=== PATIENT | male | born 1955 | race Caucasian/White ===

== ENCOUNTER 2021-04-16 06:52 | Inpatient (IN) | payer MEDICARE, SELFPAY ==
[2021-04-16] VITALS (57 sets, daily range): BP systolic 101–174; BP diastolic 59–110; PULSE 56–105; RESP 6–22; TEMP 37.1; O2SAT 92–98; BMI 28.7
--- NOTE | 2021-04-16 07:03 | XR_ITS ---
WS: [id number] PORTABLE CHEST HISTORY: chest pain COMPARISON: None available. Lungs are clear and well expanded. No pleural effusion or pneumothorax. Cardiac size: Normal. Mediastinum/Aorta: Normal mediastinum. No osseous abnormality seen. XR/XR chest 1V portable [id number] IMPRESSION: Unremarkable portable chest.
--- NOTE | 2021-04-16 07:03 | ECG_ITS ---
[facility] Test Date: 2021-04-16 Pat Name: Edward Burrell Department: Room: Gender: Male Block Handler: : 1955 Requested By: Grace Chapman Order Number: [id number] Jesse MD: Long Li M.D. Measurements Intervals [place] Rate: 84 P: 28 TX: 139 QRS: -31 QRSD: 104 T: -48 QT: 385 QTc: 457 Interpretive Statements SINUS RHYTHM WITH SINUS ARRHYTHMIA POSSIBLE LEFT ATRIAL ENLARGEMENT [-0.1mV P-WAVE IN V1/V2] POSSIBLE ANTERIOR MYOCARDIAL INFARCTION , OF INDETERMINATE AGE [30 ms Q WAVE IN V3/V4, OR R < 0.2 mV IN V4] Possible recent inferior wall GA ACUTE GA Compared to ECG 04/16/2021 07:11:49 Myocardial infarct finding now present Electronically Signed On 04-16-2021 13:42:42 SEWER HAND by Long Li M.D. [id number]
[2021-04-16 07:26] LABS: Basophils % 0.2 %; Hematocrit 44.4 % (42.0-52.0); Hemoglobin 14.9 g/dL (11.7-16.6); Lymphocytes # 1.1 10^3/uL (0.8-4.8); Lymphocytes % 6.4 %; Mean Corpuscular HGB Conc 33.6 g/dL (30.0-36.0); Mean Corpuscular Hemoglobin 28.1 pg (28.0-34.0); Mean Corpuscular Volume 83.6 fl (80-94); Mean Platelet Volume 10.4 fL (7.4-10.4); Monocytes # 0.6 10^3/uL (0.2-0.9); Monocytes % 3.5 %; Neutrophils # 14.74 10^3/uL (1.8-7.7); Neutrophils % 89.5 %; Nucleated Red Blood Cells % 0 %; Platelet Count 274 10^3/cmm (130-400); Red Blood Count 5.31 10^6/uL (4.1-5.3); Red Cell Distribution Width 12.4 % (12.1-15.1); White Blood Count 16.5 10^3/uL (4.0-10.0)
[2021-04-16] MEDS: heparin 5,000 unit/mL INJ 1 mL 4000 UNIT IVP (07:29)
[2021-04-16] MEDS: ticagrelor 90 mg Tablet 180 MG PO (07:29)
--- NOTE | 2021-04-16 07:29 | USCV_ITS ---
Edward Burrell Age: 65 Gender: M : 1955 Exam Date: 04/16/2021 07:54 Ordering Phys: Grace Chapman MD Technologist: Calderon Morales Exam Location: [facility] Indication: eval for wall abnormality BP: 174 / 110 HR: 85 Rhythm: Sinus Technical Quality: Adequate MEASUREMENTS (Male / Female) Normal Values 2D ECHO LV Diastolic Diameter PLAX 2.9 cm 4.2 - 5.9 / 3.9 - 5.3 cm LV Systolic Diameter PLAX 1.9 cm IVS Diastolic Thickness 1.1 cm 0.6 - 1.0 / 0.6 - 0.9 cm IVS Systolic Thickness 1.5 cm LVPW Diastolic Thickness 1.1 cm 0.6 - 1.0 / 0.6 - 0.9 cm LVPW Systolic Thickness 1.3 cm LVOT Diameter 2.0 cm LV Ejection Fraction 2D Teich 66.8 % LV Ejection Fraction MOD 2C 62.4 % LV Ejection Fraction 2C AL 64.9 % LA Diameter 3.0 cm LA Width 3.1 cm LA Height 4.7 cm RA Width 4.1 cm RA Height 3.9 cm Aorta at Sinotubular Diameter 2.7 cm M-MODE Aortic Annulus Diameter 2.8 cm LA Ao Ratio MM 1.1 MV E Point Septal Separation 0.8 cm DOPPLER AV Peak Velocity 105.0 cm/s LVOT Peak Velocity 83.0 cm/s AV Area Cont Eq vti 2.7 cm squared AV Area Cont Eq pk 2.5 cm squared MV Area PHT 4.5 cm squared Mitral E to A Ratio 0.7 MV E' Velocity 30.5 cm/s Mitral E to MV E' Ratio 9.7 Mitral E to LV E' Lateral Ratio 9.8 Mitral E to LV E' Septal Ratio 9.7 TR Peak Velocity 185.3 cm/s TR Peak Gradient 13.7 mmHg TR Mean Velocity 154.5 cm/s TR Mean Gradient 9.6 mmHg TR Velocity Time Integral 57.1 cm Right Atrial Pressure 3.0 mmHg Pulmonary Artery Systolic Pressu 16.7 mmHg RV Acceleration Time 0.1 s RV Ejection Time 0.3 s RV AcT/ET 0.3 FINDINGS Left Ventricle Left ventricle is normal in size. There is mild to moderate hypokinesis of the inferior base and mid inferior wall. No other wall motion disturbances noted. Ejection fraction is approximately 45%.Grade I/IV diastolic dysfunction (abnormal relaxation filling pattern), normal to mildly elevated filling pressures. Right Ventricle Normal right ventricular size and systolic function. Right Atrium Normal right atrial size. Left Atrium Normal left atrial size. Mitral Valve Structurally normal mitral valve. No mitral valve regurgitation. Aortic Valve Structurally normal trileaflet aortic valve. No aortic valve stenosis. Mild aortic valve regurgitation. Tricuspid Valve Structurally normal tricuspid valve. No tricuspid valve regurgitation. Normal pulmonary artery pressure approximately 16 mmHg. Pulmonic Valve Pulmonic valve not well visualized. Pericardium No pericardial effusion. Aorta Normal aorta. Aortic dimension 2.24 cm. CONCLUSIONS Normal left ventricular size. Mild inferior wall hypokinesis suggesting coronary artery disease. Type I diastolic dysfunction. No prior echo for comparison. No valvular abnormalities. Ejection fraction 45%. Dr. Fermin Vila MD (Electronically Signed) Final Date: 16 April 2021 16:18 Amended: 16 April 2021 16:20 C
[2021-04-16] MEDS: aspirin 325 mg Tablet PO (07:31)
--- NOTE | 2021-04-16 07:31 | W.ED.CHESTPA ---
HPI - Chest Pain General: Chief Complaint: Chest Pain Stated Complaint: Chest pain Time Seen by Provider: 04/16/21 06:54 Course Vital Signs: Vital signs: Vital Signs Temperature 98.7 F 04/16/21 07:19 Pulse Rate 88 04/16/21 07:19 Respiratory Rate 20 H 04/16/21 07:19 Blood Pressure 174/110 04/16/21 07:19 Pulse Oximetry 98 04/16/21 07:19 MDM - Chest Pain Lab Data : 04/16/21 07:19 04/16/21 07:19 Laboratory Results WBC 16.5 10^3/uL (4.0-10.0) H 04/16/21 07:19 RBC 5.31 10^6/uL (4.1-5.3) H 04/16/21 07:19 Hgb 14.9 g/dL (11.7-16.6) 04/16/21 07:19 Hct 44.4 % (42.0-52.0) 04/16/21 07:19 MCV 83.6 fl (80-94) 04/16/21 07:19 MCH 28.1 pg (28.0-34.0) 04/16/21 07:19 MCHC 33.6 g/dL (30.0-36.0) 04/16/21 07:19 RDW 12.4 % (12.1-15.1) 04/16/21 07:19 Plt Count 274 10^3/cmm (130-400) 04/16/21 07:19 MPV 10.4 fL (7.4-10.4) 04/16/21 07:19 Neut % (Auto) 89.5 % 04/16/21 07:19 Lymph % (Auto) 6.4 % 04/16/21 07:19 [place] % (Auto) 3.5 % 04/16/21 07:19 Eos % (Auto) 0.0 % 04/16/21 07:19 Baso % (Auto) 0.2 % 04/16/21 07:19 Neut # (Auto) 14.74 10^3/uL (1.8-7.7) H 04/16/21 07:19 Lymph # (Auto) 1.1 10^3/uL (0.8-4.8) 04/16/21 07:19 [place] # (Auto) 0.6 10^3/uL (0.2-0.9) 04/16/21 07:19 Eos # (Auto) 0.0 10^3/uL (0.0-0.8) 04/16/21 07:19 Baso # (Auto) 0.0 10^3/uL (0.0-0.1) 04/16/21 07:19 Nucleated RBC % (auto) 0 % 04/16/21 07:19 Nucleated RBCs # 0.0 /100WBC 04/16/21 07:19 Discharge Plan Discharge Condition: Stable Referrals: Michael Morales [Family Provider] - Coding Level of Care Code 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
--- NOTE | 2021-04-16 07:34 | ED_ITS ---
HPI - General Adult General: Chief complaint: Chest Pain Stated complaint: Chest pain Time Seen by Provider: 04/16/21 06:54 History of Present Illness: CC: Chest Pain HPI: This is a [65] yo patient hx of HTN presenting to the ED complaining of sudden onset of squeezing chest pain, diaphoresis, and throat pain since 9pm yesterday. No associated with shortness of breath, chest pain or dyspnea on exertion. Pain is not tearing in nature and does not radiate to the back. Pain not associated with vomiting or PO intake. Denies any recent sympathomimetic drug use. Patient denies any cough. Denies palpitations, dysphagia, diaphoresis, radiation of pain to bilateral arms, jaw. Denies F/N/V/D. Patient denies any recent immobility, surgery, unilateral leg swelling, or prior PE. Patient denies any orthopnea. Onset: 9pm yesterday ago Duration: ongoing for the last 15 hrs Location: home Severity: moderate/severe Associated symptoms: Reports chest pain; Deny dyspnea, nausea, rash, palpitations or vomiting Review of Systems Const: Denies: fever(s) or chills Eyes: Denies: change in vision ENMT: Denies: mouth pain Card: Reports: chest pain; Denies: palpitations Resp: Denies: dyspnea or non-productive cough GI: Denies: abdominal pain, nausea, vomiting or diarrhea : Denies: dysuria Musc: Denies: extremity pain Skin/Breast: Denies: rash or new lesions Neuro: Denies: weakness in extremities Psych: Reports: other (Normal mood) Josue/Lymph: Denies: easy bruising [facility] ED PFSH: Medical History (Updated 04/16/21 @ 08:57 by Fermin Vila MD) Hypertension Family History (Updated 04/16/21 @ 07:38 by Grace Chapman MD) Denies family history of CAD (coronary artery disease) Social History (Updated 04/16/21 @ 07:38 by Grace Chapman MD) Smoking and tobacco status: never smoked Alcohol intake: never Substance/Drug Use: never Physical Exam Const: COMMON NORMALS: alert HENMT: COMMON NORMALS: atraumatic HEAD & SCALP: atraumatic MOUTH: moist mucous membranes not abnormal Eye: COMMON NORMALS: EOMs intact bilaterally and conjunctivae normal CONJUNCTIVA: Yes conjunctivae normal Neck/C-Spine: COMMON NORMALS: full ROM and supple Resp: COMMON NORMALS: normal respiratory effort and clear to auscultation bilaterally AUSCULTATION: clear to auscultation bilaterally Cardio: COMMON NORMALS: regular rate RATE: regular rate OTHER: 2+ radial pulses b/l GI: COMMON NORMALS: Soft to palpation and non-tender PALPATION: Yes Soft to palpation Extremity: COMMON NORMALS: full ROM Neuro: SENSORIUM/ORIENTATION: Yes alert MOTOR EXAM: No Abnormal motor strength present and Other motor observations present (no focal motor deficits) Psych: COMMON NORMALS: speech normal SPEECH: Yes normal speech MOOD & AFFECT: Yes euthymic mood Course Vital Signs: Vital signs: Vital Signs Temperature 98.7 F 04/16/21 09:38 Pulse Rate 71 04/16/21 09:38 Respiratory Rate 22 H 04/16/21 09:38 Blood Pressure 138/85 04/16/21 09:38 Pulse Oximetry 94 04/16/21 09:38 MDM - General Adult Medical Decision Making [65]yo patient w/ hx of uncontrolled HTN presenting to the ED with evaluation of new onset squeezing chest pain since 9 pm yesterday (x15 hrs). HDS, pulse 2+ radially bilaterally, no signs of fluid overload, AAOx3, neuro exam intact. Given History and Exam today, will evaluate for ACS. Doubt Pneumothorax, Pneumonia, Pulmonary Embolus, Tamponade, Aortic Dissection or other emergent problems as a cause for this presentation. CXR: Without PTX, PNA, or widened mediastinum Last Stress Test: never Last Heart Catheterization: never Workup: ECG x 2, CXR, CBC, BMP, Troponin x 2 Interventions: ASA, nitro, heparin, brillanta EKG showing regular sinus rhythm at HT of 92. Normal axis. CLEO in II/III/aVF with Q waves in III and aVF and T wave inversions in II/III/aVF. Reciprocal STD in I and aVL with CLEO in V5-V6 concerning for lateral extension. Tall R waves in V2-V3 in the setting of STD in V2-V3 and upright T wave in V2-V3 concerning for posterior infarction. Normal UT, QRS, QT intervals. Case was emergently discussed with Dr. Vila at 7:20am on arrival for concern of possible inferolateroposterior STEMI(-)RADHA given EKG findings. Bedside US showed inferioseptal wall motion abnormality. Dr. Vila recommended medical optimizations and frequent reassessment. I have discussed with Dr. Vila for a troponin of 1999. Dr. Vila evaluated patient a bedside and recommended prosthetic lab technician Disposition: prosthetic lab technician Lab Data : 04/16/21 07:19 04/16/21 07:19 Radiology Impressions Chest X-Ray 04/16/21 07:03 IMPRESSION: Unremarkable portable chest. Laboratory Results WBC 16.5 10^3/uL (4.0-10.0) H 04/16/21 07:19 RBC 5.31 10^6/uL (4.1-5.3) H 04/16/21 07:19 Hgb 14.9 g/dL (11.7-16.6) 04/16/21 07:19 Hct 44.4 % (42.0-52.0) 04/16/21 07:19 MCV 83.6 fl (80-94) 04/16/21 07:19 MCH 28.1 pg (28.0-34.0) 04/16/21 07:19 MCHC 33.6 g/dL (30.0-36.0) 04/16/21 07:19 RDW 12.4 % (12.1-15.1) 04/16/21 07:19 Plt Count 274 10^3/cmm (130-400) 04/16/21 07:19 MPV 10.4 fL (7.4-10.4) 04/16/21 07:19 Neut % (Auto) 89.5 % 04/16/21 07:19 Lymph % (Auto) 6.4 % 04/16/21 07:19 [place] % (Auto) 3.5 % 04/16/21 07:19 Eos % (Auto) 0.0 % 04/16/21 07:19 Baso % (Auto) 0.2 % 04/16/21 07:19 Neut # (Auto) 14.74 10^3/uL (1.8-7.7) H 04/16/21 07:19 Lymph # (Auto) 1.1 10^3/uL (0.8-4.8) 04/16/21 07:19 [place] # (Auto) 0.6 10^3/uL (0.2-0.9) 04/16/21 07:19 Eos # (Auto) 0.0 10^3/uL (0.0-0.8) 04/16/21 07:19 Baso # (Auto) 0.0 10^3/uL (0.0-0.1) 04/16/21 07:19 Nucleated RBC % (auto) 0 % 04/16/21 07:19 Nucleated RBCs # 0.0 /100WBC 04/16/21 07:19 PT 14.90 SECONDS (12.1-14.9) 04/16/21 08:00 INR 1.14 (0.8-1.2) 04/16/21 08:00 APTT 154.0 SECONDS (23.9-36.7) H* 04/16/21 08:00 Sodium 138 mmol/L (136-145) 04/16/21 07:19 Potassium 3.9 mmol/L (3.5-5.1) 04/16/21 07:19 Chloride 102 mmol/L (98-107) 04/16/21 07:19 Carbon Dioxide 22 mmol/L (22-29) 04/16/21 07:19 Anion Gap 17.9 (5-19) 04/16/21 07:19 BUN 17 mg/dL (8-23) 04/16/21 07:19 Creatinine 1.2 mg/dL (0.7-1.2) 04/16/21 07:19 GFR Calculation 60.4 mL/min (90-130) L 04/16/21 07:19 Glucose 160 mg/dL (65-115) H 04/16/21 07:19 Calculated Osmolality 291 mOsm/kg (285-295) 04/16/21 07:19 Calcium 10.4 mg/dL (8.5-10.5) 04/16/21 07:19 Troponin T Baseline 2146 ng/L (0-15) H* 04/16/21 07:19 Troponin T 120 Minute 2084 ng/L (0-15) H 04/16/21 09:24 Delta Troponin T -62 ABS# (0-10) L 04/16/21 09:24 Imaging Data Other Imaging: Radiologist's impression: [address] [place] [address] XRay Report Signed Patient: Edward Burrell Unit #: [id number] : 1955 Age/Sex: 65 / M ADM Date: 04/16/21 Loc: ER Room/Bed: Attending Dr: Ordering Provider/Ordering MD: Grace Chapman MD Date of Service: 04/16/21 Procedure(s): XR chest 1V portable [id number] Accession Number(s): [id number] Report Number: [id number] WS: [id number] PORTABLE CHEST HISTORY: chest pain COMPARISON: None available. Lungs are clear and well expanded. No pleural effusion or pneumothorax. Cardiac size: Normal. Mediastinum/Aorta: Normal mediastinum. No osseous abnormality seen. XR/XR chest 1V portable [id number] IMPRESSION: ? Unremarkable portable chest. ? ? ? Dictated By: Fatimah Mena DO Signed By: Fatimah Mena DO Signed Date/Time: 04/16/21 0803 DD/ 0755 Discharge Plan Discharge Patient Disposition: Admitted As Inpatient Admit Provider: Fermin Vila Clinical Impression: Chest pain, Acute non-ST elevation myocardial infarction (NSTEMI) Condition: Stable Coding Level of Care Code ED Retail Manager for [employer] Fwd Exam Comprehensive
[2021-04-16 07:50] LABS: Anion Gap 17.9 (5-19); Blood Urea Nitrogen 17 mg/dL (8-23); Calcium 10.4 mg/dL (8.5-10.5); Carbon Dioxide 22 mmol/L (22-29); Chloride 102 mmol/L (98-107); Creatinine Clr Calc Pharmacy 67.6663; Glomerular Filtration Rate 60.4 mL/min (90-130); Glucose 160 mg/dL (65-115); Osmolality Calculated 291 mOsm/kg (285-295); Potassium 3.9 mmol/L (3.5-5.1); Sodium 138 mmol/L (136-145)
[2021-04-16 08:01] LABS: Troponin(5th) Baseline 2146 ng/L (0-15)
[2021-04-16 08:22] LABS: INR 1.14 (0.8-1.2)
--- NOTE | 2021-04-16 08:30 | PC.NURSE ---
Echo in room and PT/PTT lab not completed
[2021-04-16] MEDS: nitroglycerin 0.4 mg sublingual Tablet SUBLINGUAL (08:41)
--- NOTE | 2021-04-16 08:42 | PC.NURSE ---
Dr Vila in room with pt.
--- NOTE | 2021-04-16 08:50 | P.HP_ITS ---
Providers/Chief Complaint Admitting Physician: Julito Chief Complaint: Chest pain History of Present Illness Edward Burrell is a 65 year old male who has no prior history of heart disease. Last night around 9 PM he noted the onset of chest pain. He described it as just pain in the middle of his chest. There was no radiation initially although later it radiated to his back. He took Rolaids without any help. The pain waxed and waned and occurred off and on for the remainder of the evening. He was unable to sleep. This morning he felt a little better will but was still having some discomfort. He did have some diaphoresis but no nausea and vomiting. In the emergency room his EKG revealed sinus rhythm with some subtle ST segment elevation though he has a leftward axis. There is also some ST segment depression in V2 and V3 as well as V6. He was started on the appropriate medications to include heparin, aspirin, Brilinta, nitroglycerin with a nitroglycerin drip. He was initially hypertensive. After his troponin came back above 2000 I was called again and decided to come to the emergency room to see the patient. Upon my arrival he is still having some mild discomfort. His other vital signs are stable. His second EKG at 08 53 reveals sinus rhythm with slightly more ST segment depression in leads V2 and V3 with the previously mentioned ST segment changes in 2, 3, aVF and V6. Review of Systems Narrative: Review of systems is unremarkable. Medications/Allergies Allergies Allergy/AdvReac Type Severity Reaction Status Date / Time No Known Allergies Allergy Verified 04/16/21 07:12 PFSH Acute PFSH: Medical History (Updated 04/16/21 @ 08:57 by Fermin Vila MD) Hypertension Family History (Updated 04/16/21 @ 07:38 by Grace Chapman MD) Denies family history of CAD (coronary artery disease) Social History (Updated 04/16/21 @ 07:38 by Grace Chapman MD) Smoking and tobacco status: never smoked Alcohol intake: never Substance/Drug Use: never Vitals/I&O/Wt Last Vital Signs Temp 98.7 F 04/16/21 07:19 Pulse 84 04/16/21 08:45 Resp 18 04/16/21 08:45 BP 150/102 04/16/21 08:45 Pulse Ox 97 04/16/21 08:45 Weight last 48 hrs Weight 200 lb Physical Exam Narrative: GENERAL: In general he looks a little bit uncomfortable. He is not in any significant distress. HEENT: Exam within normal limits. NECK: Supple without jugular vein distention. The carotid upstroke is normal without bruits. BACK: Exam normal. LUNGS: Clear. HEART: Regular rate and rhythm. ABDOMEN: Benign without organomegaly or tenderness. EXTREMITIES: No edema. NEUROLOGIC: Exam normal. SKIN: Unremarkable. Data : 04/16/21 07:19 04/16/21 07:19 Other Labs: Troponin is 2146. EKG is are as mentioned above. Glomerular filtration rate 60. A&P Assessment and plan (1) Chest pain: Status: Acute (2) Acute non-ST elevation myocardial infarction (NSTEMI): Status: Acute Attestations Medical Necessity Statement*: Patient is having a non-ST segment elevation AR with continued chest discomfort despite aggressive medical therapy. He needs relatively urgent coronary angiography. Coding Level of Care Code New Pt Acute Ict Account Manager for g Fwd Patient Type New History Detailed Exam Detailed Medical Decision Making Moderate Complexity Diagnoses Chest pain R07.9 Acute non-ST elevation myocardial infarction (NSTEMI) I21.4 Time Spent (min) 45
[2021-04-16] MEDS: nitroglycerin drip 50 MG/250 ML PREMIX IV (08:57)
--- NOTE | 2021-04-16 09:03 | ECG_ITS ---
[facility] Test Date: 2021-04-16 Pat Name: Edward Burrell Department: Room: Gender: Male Labels Molder: : 1955 Requested By: Grace Chapman Order Number: [id number] Jesse MD: oLng Li M.D. Measurements Intervals [place] Rate: 92 P: 47 MS: 148 QRS: -21 QRSD: 110 T: -44 QT: 367 QTc: 456 Interpretive Statements SINUS RHYTHM POSSIBLE LEFT ATRIAL ENLARGEMENT [-0.1mV P-WAVE IN V1/V2] Recent inferior wall IL. Nonspecific T wave changes in the anterior leads No previous ECG available for comparison Electronically Signed On 04-16-2021 13:44:08 MODEL MAKER FIBERGLASS by Long Li M.D. [id number]
--- NOTE | 2021-04-16 09:09 | XACV_ITS ---
Exam Room: [facility] Ht: 178 cm Wt: 91 kg BSA: 2.14 m2 Gender: Male : 1955 Any Known Allergies: No known allergies Exam Priority: Routine Procedure(s): Procedure Description: Diagnostic procedure Procedure Description: PCI procedure Procedure Description: Drug Eluting Coronary Stent Procedure Description: PTCA Procedure Description: Coronary Angiography Diagnostic Cath Status: Urgent Diagnostic Findings * This patient has no known history of heart disease and began to have chest pain about 10 hours prior to admission. He had subtle ST segment elevation in leads III, aVF and V6. There was also some ST segment depression in leads V2 and V3. He was initially treated with the appropriate medications in the ER but continued to have pain. His first troponin was over 2000. Second EKG was slightly more abnormal but not significantly more so than the first one. Because of the changes in the EKG, the continued pain and the elevation in the troponin I decided to take him to the Solar Installation Crew Supervisor. * Coronary angiography reveals right coronary artery dominance. The left main coronary artery is normal and bifurcates into the LAD and circumflex. The circumflex contains 2 marginal branches and exhibits diffuse luminal irregularities in the midportion. The LAD bifurcates into the small septal branch and a large diagonal branch. The distal LAD actually comes off of the septal branch after making 2 right angles. There is a 70% long stenosis in the LAD after coming off of the septal branch. The right coronary artery contains diffuse luminal irregularities and then is occluded distally. PCI Status: Urgent PCI LVEF Assessed: No PCI Indication: STEMI - Stable (<= 12 hrs Sx) Interventional Findings * The right coronary artery stenting without incident. The LAD lesion is significant with respect to its location. I tried to place a wire but there are 2 very acute 90 degree turns off the LAD, down to the septal and then to the more distal LAD. I could not get the wire down the LAD to the apex and so I decided not to intervene on this vessel and chose to simply treat the culprit lesion. Decision for PCI with Surgical Consult: No PCI for Multi-vessel Disease: No Conclusions 1. Angioplasty and stent of an occluded right coronary artery. Recommendations * Medical treatment. Stress testing post discharge to assess the LAD distribution. Interventional RX Recommendation: PCI w/o planned CABG Diagnostic RX Recommendation: PCI w/o planned CABG Anticoagulation: Heparin Pressures Phase:Rest AO : 154 / 100 ( 122 ) @ 7:59:00 AM 106 / 77 ( 81 ) @ 8:09:00 AM 179 / 109 ( 126 ) @ 8:23:00 AM Clinical Evaluation EBL: 5mL-10mL Procedural Details Procedure Consent Obtained. Pre-Procedure Time Out. Identified patient by full name and date of as verbalized by the patient/guarantor. Does the consent match the physician's order: Yes. Accurate & Complete Informed Consent: Yes. Inpatient/Outpatient History & Physical on Chart: Yes. If H&P is completed, is and addenduem needed: No; If yes, is the addendum complete: N/A. Visualize and Verify Site with Patient/Guarantor: N/A. Relevant Radiology Images available: N/A. Pre-op teaching completed and patient verbalized understanding. The risks, benefits, and alternatives of sedation and/or procedure were discussed by physician. The patient agrees to continue. Procedure started. [facility] Clinical Fraility Score: 3: Managing Well. Solar Installation Crew Supervisor Indications: ACS <= 24 hours. Chest Pain Symptom Assessment: Typical Angina Symptoms. Cardiovascular Instability: No, if yes, Persistant Ischemic Symptoms. Correct patient, site and procedure confirmed by cath team. PERRLA. Strong, equal hand cut to length operator bilaterally. Lungs clear x 5 lobes. IV Site on Arrival: 18 gauge in the left wrist. IV Site on Arrival: 20 gauge in the right anticubital. IV Fluids: 0.9% NaCl at KVO. 0 mL infused prior to slab stripper. Pre Procedural Pulses: bilateral dorsalis pedis was 3+. Pre Procedural Pulses: bilateral posterior tibial was 3+. Pre Procedural Pulses: bilateral radial was 3+. Oxygen started at 2liters/min via nasal canula. Physician arrived. Equipment: 6F - Radial. Cardiac Cath Pack. ACIST Manifold Kit Model BT 2000. Heparinized Saline (2 units/mL), 1000 mL bag. Physician scrubbed in. Immediate Pre-Procedure Time Out. Correct Patient: Yes; Correct Procedure: Yes; Correct Site: Yes; Correct Patient Position: Yes; Correct Supplies: Yes; Dried Flammable Prep: Yes; Blood Products Available: N/A;. Lidocaine 1% infiltrated to the right radial. Arterial access obtained. A 5 hungarian TIG catheter in over wire. Multiple views taken of left coronary artery. Catheter redirected to the RCA. Multiple views taken of right coronary artery. Catheter removed over the standard wire. Inventory is TR 180cm Runthrough NS extra floppy 0.014 wire. Inventory is CRD 6FR JR 4 GUIDE 100cm. 6 hungarian JR 4 guide catheter was inserted over the wire. Runthrough guidewire was advanced through the guide catheter to lesion in the distal RCA. Patient's family updated. Inflation number : 1 A AB TREK 3.50X15 RX BALLOON was prepped and advanced across the Dist RCA , then inflated to 12 CHELI for 0:32 seconds. Inflation number: 2 The AB TREK 3.50X15 RX BALLOON was reinflated across the Dist RCA, to 12 CHELI for 0:23 seconds. Balloon out. Critical trop called by Trever from lab 2083. Notified Dr Vila. Inflation Number : 3 A MDT R SASCHA 4.0X22 TERRANCE -Lot Number# [id number] exp date 05/04/2022 was prepped and advanced across the Dist RCA. The stent was deployed at 12 CHELI for 0:35 seconds. Stent balloon and wire out. Guide catheter out. Inventory is CRD 6 FR XB 3.5 GUIDE. 6 hungarian XB 3.5 guide catheter was inserted over the wire. Runthrough guidewire was advanced through the guide catheter to lesion in the mid LAD. Wire out to reshape. Runthrough guidewire was advanced through the guide catheter to lesion in the mid LAD. Wire out. Guide catheter out. A 5 hungarian Angled Pig catheter in over wire. Patient's family updated. Catheter out. Physician scrubbed out. A TR Band was successful obtaining hemostatsis at the Right Radial artery insertion site. TR band placed. Hemostasis obtained. Post Procedure: Pulses reassessed and unchanged. PERRLA. Strong, equal hand cut to length operator bilaterally. No VTE prophylaxis required. Medication's Wasted: Lidocaine 1% = 18 mL. Medication's Wasted: Heparin = 1000 units. Contrast type used: Omnipaque 300 mg/mL, 150 mL bottle. Complications: none. Post-op diagnosis: nstemi. PCI Indication: NSTE. Estimated blood loss: 5mL-10mL. Responsiveness - Normal response to verbal stimuli; alert and oriented, PERRLA. Airway - Unaffected, no intervention required; spontaneous ventilation. Circulation: W/N/L, pulses unchanged. Nausea/Vomiting: No. Procedure completed. Patient transferred by wheelchair to 1st floor. Vital chart was stopped. Access Site Site: Right Radial artery Sheath Size: 6 Fr Hemostasis Method: TR Band Hemostasis Success: Successful Procedure Medications Start: 9:52 AM Stop: 9:52 AM Medication: Versed Amount: 1 mg Route: I.V. Start: 9:52 AM Stop: 9:52 AM Medication: Fentanyl Amount: 50 mcg Route: I.V. Start: 9:57 AM Stop: 9:57 AM Medication: Nitrogylcerin Amount: 200 mcg Route: I.A. Start: 9:59 AM Stop: 9:59 AM Medication: Heparin Amount: 5000 units Route: I.V. I, the attending physician, have reviewed and verified all procedure medications. Yes, all medications given per verbal order History/Risk Factors Hypertension: Yes Dyslipidemia: No Peripheral Arterial Disease (PAD): No Myocardial Infarction (MD): No Obesity: No Renal Disease: No Prior Interventions PCI: No CABG: No Valve Surgery: No Report Signatures Finalized by Dr. Fermin Vila MD on 04/16/2021 02:14 PM
[2021-04-16] MEDS: diphenhydrAMINE 50 mg Capsule PO (09:20)
[2021-04-16] MEDS: sodium chloride 0.9% 1,000 ML 50 ML IV (09:21)
[2021-04-16 10:18] LABS: Troponin 5 2HR 2084 ng/L (0-15); Troponin 5 2HR Delta -62 ABS# (0-10)
--- NOTE | 2021-04-16 12:21 | PC.NURSE ---
received from cardiac slabber at 11:00.report received.pt is alert and awake.sr on monitor.vss.right wrist with tr band on and inflated.right hand is warm to touch and with brisk capillary refill.no hematoma noted.palpable radial pulse noted distal to tr band.pt instructed in activity restrictions s/p tr band..and instructed to notify staff for any bleeding,pain,numbness..or for any concerns at all.pt verb understanding of instructions
--- NOTE | 2021-04-16 14:02 | ECG_ITS ---
[facility] Test Date: 2021-04-16 Pat Name: Edward Burrell Department: Room: 107 Gender: Male Oven Dumper: : 1955 Requested By: Fermin Vila Order Number: [id number] Jesse MD: Fermin Vila M.D. Measurements Intervals [place] Rate: 70 P: 34 DE: 141 QRS: -46 QRSD: 89 T: -29 QT: 407 QTc: 440 Interpretive Statements SINUS RHYTHM POSSIBLE LEFT ATRIAL ENLARGEMENT [-0.1mV P-WAVE IN V1/V2] POSSIBLE LEFT VENTRICULAR HYPERTROPHY [VOLTAGE CRITERIA PLUS LAE OR QRS WIDENING] INFEROLATERAL MYOCARDIAL INFARCTION , PROBABLY RECENT [40+ ms Q WAVE IN I/aVL/V3-V6] ACUTE LA Compared to ECG 04/16/2021 08:53:28 Sinus arrhythmia no longer present Myocardial infarct finding still present Electronically Signed On 04-17-2021 12:26:05 MANAGER MACHINE by Fermin Vila M.D. [id number]
[2021-04-16] MEDS: ondansetron 2 mg/ML SDV 2 mL 4 MG IVP (14:22)
--- NOTE | 2021-04-16 14:30 | PC.NURSE ---
pt c/o nausea and mild substernal chest pressure.bp 122/70,hr 65.skin is warm and dry to touch and color is wnl.ekg obtained and dr sahu notified.he ordered zofran for nausea.will cont to observe closely.
[2021-04-16 14:58] LABS: Troponin 5 6HR > 10000 ng/L (0-15)
--- NOTE | 2021-04-16 17:14 | PC.NURSE ---
tr band slowly deflated and finally removed at 1645.no hematoma formation noted.right hand is warm to touch and with brisk capillary refill.palpable radial pulse noted.dressed with 2x2 gauze and secured with biocclusive.instructed to notify staff for any pain,bleeding,numbness,bruising,or for any concerns at all.pt verb understanding of instructions.
[2021-04-16] MEDS: metoprolol tartrate 50 mg Tablet PO (17:57)
[2021-04-16] MEDS: clopidogrel 300 mg Tablet 600 MG PO (18:41)
[2021-04-16] MEDS: atorvastatin 40 mg Tablet PO (20:26)
[2021-04-17] VITALS: BP 102/64; PULSE 56; RESP 13; TEMP 37
[2021-04-17 04:38] VITALS: PULSE 63
[2021-04-17 04:48] VITALS: PULSE 60
[2021-04-17 04:48] LABS: Basophils % 0.2 %; Eosinophils % 0.1 %; Hematocrit 40.7 % (42.0-52.0); Lymphocytes # 2.2 10^3/uL (0.8-4.8); Mean Corpuscular HGB Conc 31.9 g/dL (30.0-36.0); Mean Corpuscular Hemoglobin 28.7 pg (28.0-34.0); Mean Corpuscular Volume 89.8 fl (80-94); Mean Platelet Volume 10.6 fL (7.4-10.4); Monocytes # 1.8 10^3/uL (0.2-0.9); Monocytes % 9.9 %; Neutrophils # 14.01 10^3/uL (1.8-7.7); Neutrophils % 77.2 %; Nucleated Red Blood Cells % 0 %; Platelet Count 244 10^3/cmm (130-400); Red Blood Count 4.53 10^6/uL (4.1-5.3); Red Cell Distribution Width 13.1 % (12.1-15.1); White Blood Count 18.1 10^3/uL (4.0-10.0)
[2021-04-17 05:08] LABS: Alanine Aminotransferase 71 U/L (0-41); Alkaline Phosphatase 51 IU/L (40-130); Aspartate Amino Transferase 406 U/L (0-40); Blood Urea Nitrogen 22 mg/dL (8-23); Calcium 9.6 mg/dL (8.5-10.5); Carbon Dioxide 21 mmol/L (22-29); Chloride 104 mmol/L (98-107); Globulin 2.3 g/dL (1.3-4.6); Glomerular Filtration Rate 55.1 mL/min (90-130); Glucose 134 mg/dL (65-115); Osmolality Calculated 289 mOsm/kg (285-295); Sodium 137 mmol/L (136-145); Total Bilirubin 0.5 mg/dL (0.15-1.2); Total Protein 6.3 g/dL (6.6-8.7)
--- NOTE | 2021-04-17 05:18 | PC.NURSE ---
Frequent safety and comfort rounds continue. Orders and/or nursing care completed as indicated. Patient monitored for response to intervention and treatment(s). Education provided includes reasons for slight pain to area of chest after receiving stents and balloon. Patient and/or u.s. representative verbalize understanding. Will continue to monitor.
[2021-04-17 07:56] VITALS: BP 109/70; PULSE 62; RESP 12; TEMP 37.1; O2SAT 95
--- NOTE | 2021-04-17 08:50 | PM.DCS ---
Discharge Providers Date of Admission: 04/16/21 09:50 Date of Discharge: April 17, 2021 Attending Provider at Admission: Fermin Vila MD Attending Provider at Discharge: Fermin Vila MD Diagnoses at Discharge Discharge Diagnosis (1) Chest pain: Status: Acute (2) Acute non-ST elevation myocardial infarction (NSTEMI): Status: Acute (3) Hypertension: Status: Acute (4) Glucose intolerance: Status: Acute Reason for Visit Reason for Visit: Chest pain Brief History: Patient was admitted early yesterday morning after having chest pain for approximately 10 hours. The pain was typical of myocardial infarction. Upon his arrival he had EKG suggestive of ischemia though not an ST segment elevation FL. He was hypertensive and continued to have chest pain. Despite antiplatelet agents, anticoagulants, nitroglycerin and beta-blockers the pain continued. His EKG was unchanged. It was decided to take him to the cardiac catheterization laboratory directly from the emergency room. Hospital Course Hospital Course He underwent catheterization which revealed a normal left main and mild to moderate diffuse luminal irregularities of the circumflex. The right coronary artery was occluded distally. This was opened with an angioplasty balloon and subsequently stented. He has a very unusual LAD whereby the LAD bifurcates into a septal branch and a large diagonal branch. The more distal LAD comes off the septal. There are 2 acute right hand turns were 90 degree angle turns the first from the LAD to the diagonal and the second from the diagonal to the distal LAD. These are within millimeters of one another and are in the opposite direction. I made a brief attempt to place a wire but was unsuccessful so decided to leave it alone. There is a 70% lesion in the LAD past the takeoff from the diagonal branch. A ventriculogram was not performed however the echo showed mild hypokinesis of the inferior wall. He was placed on the appropriate medications. His troponin was above 10,000. His EKG stabilized and ultimately showed Q waves in leads V5, V6, II, III and aVF. Glucoses were in the mid 100s. They did not require specific treatment. The procedure was performed from the right radial artery. There were no complications. Physical Exam Narrative: GENERAL: General he looks well at discharge. HEENT: Exam within normal limits. NECK: Supple without jugular vein distention. The carotid upstroke is normal without bruits. BACK: Exam normal. LUNGS: Clear. HEART: Regular rate and rhythm. ABDOMEN: Benign without organomegaly or tenderness. EXTREMITIES: No edema. At discharge his right radial area is flat, dry without hematoma or other vascular anomaly. He has a good pulse. NEUROLOGIC: Exam normal. SKIN: Unremarkable. Discharge Data Studies Completed and Pending Completed Studies During Hospitalization Category Date Time Status ACTING PROFESSOR request for service Routine Exams 04/16/21 09:09 Completed XR chest 1V portable [id number] Stat Exams 04/16/21 07:03 Completed CV. echo complete* [id number] Urgent Ultrasound 04/16/21 07:29 Completed Radiology Impressions Chest X-Ray 04/16/21 07:03 IMPRESSION: Unremarkable portable chest. Laboratory Results WBC 18.1 10^3/uL (4.0-10.0) H 04/17/21 04:23 RBC 4.53 10^6/uL (4.1-5.3) 04/17/21 04:23 Hgb 13.0 g/dL (11.7-16.6) 04/17/21 04:23 Hct 40.7 % (42.0-52.0) L 04/17/21 04:23 MCV 89.8 fl (80-94) D 04/17/21 04:23 MCH 28.7 pg (28.0-34.0) 04/17/21 04:23 MCHC 31.9 g/dL (30.0-36.0) D 04/17/21 04:23 RDW 13.1 % (12.1-15.1) 04/17/21 04:23 Plt Count 244 10^3/cmm (130-400) 04/17/21 04:23 MPV 10.6 fL (7.4-10.4) H 04/17/21 04:23 Neut % (Auto) 77.2 % 04/17/21 04:23 Lymph % (Auto) 12.0 % 04/17/21 04:23 [place] % (Auto) 9.9 % 04/17/21 04:23 Eos % (Auto) 0.1 % 04/17/21 04:23 Baso % (Auto) 0.2 % 04/17/21 04:23 Neut # (Auto) 14.01 10^3/uL (1.8-7.7) H 04/17/21 04:23 Lymph # (Auto) 2.2 10^3/uL (0.8-4.8) 04/17/21 04:23 [place] # (Auto) 1.8 10^3/uL (0.2-0.9) H 04/17/21 04:23 Eos # (Auto) 0.0 10^3/uL (0.0-0.8) 04/17/21 04:23 Baso # (Auto) 0.0 10^3/uL (0.0-0.1) 04/17/21 04:23 Nucleated RBC % (auto) 0 % 04/17/21 04:23 Nucleated RBCs # 0.0 /100WBC 04/17/21 04:23 PT 14.90 SECONDS (12.1-14.9) 04/16/21 08:00 INR 1.14 (0.8-1.2) 04/16/21 08:00 APTT 154.0 SECONDS (23.9-36.7) H* 04/16/21 08:00 Sodium 137 mmol/L (136-145) 04/17/21 04:23 Potassium 4.0 mmol/L (3.5-5.1) 04/17/21 04:23 Chloride 104 mmol/L (98-107) 04/17/21 04:23 Carbon Dioxide 21 mmol/L (22-29) L 04/17/21 04:23 Anion Gap 16.0 (5-19) 04/17/21 04:23 BUN 22 mg/dL (8-23) 04/17/21 04:23 Creatinine 1.3 mg/dL (0.7-1.2) H 04/17/21 04:23 GFR Calculation 55.1 mL/min (90-130) L 04/17/21 04:23 Glucose 134 mg/dL (65-115) H 04/17/21 04:23 Calculated Osmolality 289 mOsm/kg (285-295) 04/17/21 04:23 Calcium 9.6 mg/dL (8.5-10.5) 04/17/21 04:23 Total Bilirubin 0.5 mg/dL (0.15-1.2) 04/17/21 04:23 AST 406 U/L (0-40) H 04/17/21 04:23 ALT 71 U/L (0-41) H 04/17/21 04:23 Alkaline Phosphatase 51 IU/L (40-130) 04/17/21 04:23 Troponin T Baseline 2146 ng/L (0-15) H* 04/16/21 07:19 Troponin T 120 Minute 2084 ng/L (0-15) H 04/16/21 09:24 Delta Troponin T -62 ABS# (0-10) L 04/16/21 09:24 Troponin T Hi Sens 6Hr > 55528 ng/L (0-15) H 04/16/21 13:00 Troponin T Hi Sens 6Hr Delta > 7854.90701 ng/L (0-12) H* 04/16/21 13:00 Total Protein 6.3 g/dL (6.6-8.7) L 04/17/21 04:23 Albumin 4.0 g/dL (3.5-5.2) 04/17/21 04:23 Globulin 2.3 g/dL (1.3-4.6) 04/17/21 04:23 Vitals Last Vital Signs Temp 98.7 F 04/17/21 07:56 Pulse 62 04/17/21 07:56 Resp 12 04/17/21 07:56 BP 109/70 04/17/21 07:56 Pulse Ox 95 04/17/21 07:56 Discharge Plan Discharge Patient Disposition: Home Condition: Stable Prescriptions: New metoprolol tartrate 50 mg Tablet 50 mg PO BID Qty: 180 0RF aspirin 81 mg Tablet,Delayed Release (Dr/Ec) 81 mg PO DAILY Qty: 90 0RF atorvastatin 40 mg Tablet 40 mg PO BEDTIME Qty: 90 0RF clopidogrel 75 mg Tablet 75 mg PO DAILY Qty: 90 0RF No Action No Known Home Medications 0RF Discharge Orders: Discharge Order (Routine); Ordered 04/17/21 Ordered By: Fermin Vila Referrals: Michael Morales [Family Provider] - Arianna Emery FNP [Nurse Practitioner] - (Follow-up 1 week for chemistry panel and right upper extremity check.) Discharge Diet: Cardiac Discharge Activity: Limit activity as instructed Patient Instructions: Opioid Safety, Coronary Angioplasty (DC) Activity Restrictions/Additional Instructions: No lifting over 5 pounds with the right upper extremity for 2 days. No heavy activity for 2 weeks. Discharge Attestations Time Spent in Discharge Care*: greater than 30 min Quality Metrics Clinical Quality Measures [ Acute Myocardial Infaction { Clinical Trial Participant: No; Contraindication to aspirin: None; Aspirin prescribed; Contraindication to statin: None; Statin prescribed; Contraindication to PCI: None; PCI performed;}] Coding Level of Care Code Acute Chg FW DC note History Detailed Exam Detailed Medical Decision Making Moderate Complexity Diagnoses Chest pain R07.9 Acute non-ST elevation myocardial infarction (NSTEMI) I21.4 Hypertension I10 Glucose intolerance E74.39 Time Spent (min) 40
--- NOTE | 2021-04-17 08:50 | PC.NURSE ---
oral intake of 361 ml
[2021-04-17] MEDS: metoprolol tartrate 50 mg Tablet PO (08:51)
[2021-04-17] MEDS: aspirin 81 mg EC Tablet PO (08:51)
[2021-04-17] MEDS: clopidogrel 75 mg Tablet PO (08:51)
--- NOTE | 2021-04-17 10:04 | PC.CHAP ---
Pastoral Care Encounter/Spiritual Assessment Type of Contact [] Declined hub bander visit [] Patient/Family/Request visit [] Outpatient visit [] Follow-up visit [] Physician referral [] Code/Alert [x] Routine visit [] Staff referral [] Actively dying [] Patient sleeping [] Family support [] [] Out of room [] Palliative care [] [] Receiving care in room [] Pre-surgical visit [] Trauma [] Long length of stay [] ICU visit [] Other: Relational/Emotional Strength [] Patient feels connected with others/family/visitors/staff [] Distress [] Loneliness/isolation [] Abandonment Spirituality of Patient [] Person of Rosa M [] Attends Anglican of their Rosa M [] Believes in Prayer [] Reads Bible or Gnosticism materials [] There are Spiritual issues to be addressed Vaccine Key Customer Leader Interventions [x] Prayer [x] Active listening [x] Non-anxious presence [x] Spiritual/emotional support [] Crisis/trauma care [] Spiritual counseling [] Bereavement support [] Provided bereavement packet [] Provided Bible/devotional materials [] Provided toy/stuffed animal, coloring book to patient or family member [] Provided Communion [] Anointing/Hasty [] Salvation [x] Completed spiritual assessment [] Other: Impact on Illness or Injury [] Angry [] Fearful [] Anxious [] Often cries [] Exhaustion [] Unable to work [] Unable to attend latter day [] Unable to walk/stand [] Unable to read [] Unable to drive [] Unable to eat/drink [] Unable to sleep [] Unable to be with family [] Patient intubated [] Other: Summary chest pain gone.. feeling better Time spent with patient 5 min
[2021-04-17 11:08] VITALS: BP 109/70; PULSE 62; RESP 12; TEMP 37.1; O2SAT 95
--- NOTE | 2021-04-17 11:48 | PC.NURSE ---
Patient education provided to spouse and self. No questions or concerns. VS stable upon departure.
== END 2021-04-17 11:49 | disposition home or self-care (01) | DRG 247 ==
LOC: ER 07:48 → CSU 10:01
PROVIDERS: Admitting Provider Internal Medicine Cardiovascular Disease; Emergency Provider Emergency Medicine; Family Provider Family Medicine; Visit Provider Internal Medicine Cardiovascular Disease
PROC: 027034Z Dilation of Coronary Artery, One Artery with Drug-eluting Intraluminal Device, Percutaneous Approach (ICD-10-PCS; principal; 2021-04-16 09:00)
PROC: 027034Z Dilation of Coronary Artery, One Artery with Drug-eluting Intraluminal Device, Percutaneous Approach (ICD-10-PCS; 2021-04-16 09:00)
DX: I21.4 Non-ST elevation (NSTEMI) myocardial infarction (principal); I10 Essential (primary) hypertension; E74.39 Other disorders of intestinal carbohydrate absorption
CPT/HCPCS: 36415; 71045; 80048; 80053; 84484; 85025; 85610; 85730; 93005; 93306; 93452; 93458; 99291; 99292; C1725; C1769; C1874; C1887; C1894; C9600; J1644; J2250; J2405; J3010; J3490; J7030; Q0163; Q9967

== ENCOUNTER → 2021-04-28 09:00 | Outpatient (BNVA) | payer MEDICARE, SELFPAY | PROVIDERS: Family Provider Family Medicine; Visit Provider Nurse Practitioner Family | DX: I25.10 Atherosclerotic heart disease of native coronary artery without angina pectoris (principal); Z09 Encounter for follow-up examination after completed treatment for conditions other than malignant neoplasm; Z87.891 Personal history of nicotine dependence | CPT/HCPCS: 80048; 80061; 99214 ==

== ENCOUNTER → 2021-06-23 13:21 | Outpatient (BNVA) | payer MEDICARE, SELFPAY | PROVIDERS: Family Provider Family Medicine; Visit Provider Internal Medicine | DX: I25.10 Atherosclerotic heart disease of native coronary artery without angina pectoris (principal); I10 Essential (primary) hypertension; Z87.891 Personal history of nicotine dependence; I25.2 Old myocardial infarction | CPT/HCPCS: 99214 ==

== ENCOUNTER → 2021-10-27 15:07 | Outpatient (BNVA) | payer MEDICARE, SELFPAY | PROVIDERS: Family Provider Family Medicine; Visit Provider Internal Medicine | DX: I25.10 Atherosclerotic heart disease of native coronary artery without angina pectoris (principal); I10 Essential (primary) hypertension; Z87.891 Personal history of nicotine dependence | CPT/HCPCS: 99214 ==

== ENCOUNTER → 2022-04-30 09:35 | Outpatient (BNVA) | payer MEDICARE, SELFPAY | PROVIDERS: Family Provider Family Medicine; Visit Provider Nurse Practitioner Family | DX: I25.10 Atherosclerotic heart disease of native coronary artery without angina pectoris (principal); I10 Essential (primary) hypertension; Z87.891 Personal history of nicotine dependence | CPT/HCPCS: 99214 ==

== ENCOUNTER → 2022-08-02 13:43 | Outpatient (BNVA) | payer MEDICARE, SELFPAY | PROVIDERS: Family Provider Family Medicine; Visit Provider Internal Medicine | DX: I25.10 Atherosclerotic heart disease of native coronary artery without angina pectoris (principal); I10 Essential (primary) hypertension; Z87.891 Personal history of nicotine dependence | CPT/HCPCS: 99214 ==

== ENCOUNTER → 2023-01-31 14:34 | Outpatient (BNVA) | payer MEDICARE, SELFPAY | PROVIDERS: Family Provider Family Medicine; Visit Provider Internal Medicine | DX: I25.10 Atherosclerotic heart disease of native coronary artery without angina pectoris (principal); I10 Essential (primary) hypertension; Z87.891 Personal history of nicotine dependence | CPT/HCPCS: 99214 ==

== ENCOUNTER → 2023-11-02 14:35 | Outpatient (BNVA) | payer MEDICARE, SELFPAY | PROVIDERS: Family Provider Family Medicine; Visit Provider Internal Medicine | DX: I25.10 Atherosclerotic heart disease of native coronary artery without angina pectoris (principal); I10 Essential (primary) hypertension; Z87.891 Personal history of nicotine dependence | CPT/HCPCS: 99214 ==

== ENCOUNTER → 2024-08-01 14:59 | Outpatient (BNVA) | payer MEDICARE, SELFPAY | PROVIDERS: Visit Provider Internal Medicine | DX: I25.10 Atherosclerotic heart disease of native coronary artery without angina pectoris (principal); I10 Essential (primary) hypertension; Z79.02 Long term (current) use of antithrombotics/antiplatelets; Z79.82 Long term (current) use of aspirin; Z87.891 Personal history of nicotine dependence | CPT/HCPCS: 99213 ==